=== PATIENT | female | born 1990 | race Caucasian/White ===

== ENCOUNTER → 2019-03-01 11:38 | Outpatient (CLI) | payer BC, SELFPAY ==
[2019-03-01 12:10] LABS: Basophils % 0.3 % (0.1-2.0); Eosinophils # 0.3 K/mm3 (0.0-0.4); Eosinophils % 4.2 % (0.1-12.0); Hematocrit 39.9 % (37.0-47.0); Hemoglobin 13.1 g/dL (12.2-16.2); Lymphocytes # 3.2 K/mm3 (0.7-4.5); Lymphocytes % 43.7 % (10-50); Mean Corpuscular HGB Conc 32.9 g/dL (31.8-35.4); Mean Corpuscular Hemoglobin 31.6 pg (27.0-31.2); Mean Corpuscular Volume 96.1 fl (81-99); Mean Platelet Volume 8.9 fl (7.4-10.4); Monocytes # 0.3 K/mm3 (0.1-1.0); Monocytes % 4.6 % (1.7-9.3); Neutrophils # 3.5 K/mm3 (1.8-7.8); Neutrophils % 47.2 % (37.0-80.0); Platelet Count 253 K/mm3 (142-424); Red Blood Count 4.15 M/mm3 (4.20-5.40); Red Cell Distribution Width 12.4 % (11.5-17.5); White Blood Count 7.3 K/mm3 (4.8-10.8)
[2019-03-01 16:09] LABS: Alanine Aminotransferase 16 U/L (12-78); Albumin Level 4.2 gm/dL (3.4-5.0); Albumin/Globulin Ratio 1.3 (1.1-1.8); Alkaline Phosphatase 53 U/L (46-116); Anion Gap 11.8 mEq/L (5-15); Aspartate Amino Transferase 12 U/L (15-37); Bilirubin,Total 0.3 mg/dL (0.2-1.0); Blood Urea Nitrogen 10 mg/dL (7-18); Calcium 9.1 mg/dL (8.5-10.1); Carbon Dioxide 28 mmol/L (21.0-32.0); Chloride 105 mmol/L (98-107); Chol/HDL Ratio 2.9 (1-3.5); Cholesterol 176 mg/dL (140-200); Creatinine,Serum 0.65 mg/dL (0.55-1.02); Estimated Glomerular Filt Rate 109 ml/min (>60); Free T4 (Free Thyroxine) 0.84 ng/dl (0.76-1.46); GFR (African American) 131 ML/MIN (>60); Globulin 3.2 gm/dl (1.3-3.2); Glucose 85 mg/dL (74-106); HDL Cholesterol 61 mg/dL (29-89); LDL Cholesterol 102 mg/dL (0-130); Potassium 4.8 mmoL/L (3.5-5.1); Sodium 140 mmol/L (136-145); Thyroid Stimulating Hormone 1.04 uIU/ml (0.358-3.740); Total Protein,Serum 7.4 gm/dL (6.4-8.2); Triglycerides 64 mg/dL (30-200); VLDL Cholesterol 13 mg/dL (0-40)
== END ==
PROVIDERS: Visit Provider Nurse Practitioner Family
DX: R53.83 Other fatigue (principal); E55.9 Vitamin D deficiency, unspecified
CPT/HCPCS: 36415; 80053; 80061; 82652; 84439; 84443; 85025

== ENCOUNTER → 2019-03-05 16:21 | Outpatient (CLI) | payer BC, SELFPAY ==
--- NOTE | 2019-03-05 16:27 | XR_ITS ---
PROCEDURE: XR ELBOW RT MIN 3V CLINICAL INDICATION: pain Persistent pain following injury COMPARISON: No exams were available for comparison FINDINGS: No fracture or dislocation. No lytic or blastic change. There is normal mineralization. The joint spaces are well-preserved. No significant degenerative/arthritic changes. No erosive changes evident. Other findings:2 small opacities lateral to the elbow joint overlying the soft tissues possibly due something upon the patient. Button artifact is present as well IMPRESSION: No acute findings. Dictated by: Ben Ghosh MD 03/05/2019 17:28 Electronically signed by Ben Ghosh MD in [place] 03/05/2019 17:28
== END ==
PROVIDERS: PCP Nurse Practitioner Family; Visit Provider Nurse Practitioner Family
DX: M25.521 Pain in right elbow (principal)
CPT/HCPCS: 73080

== ENCOUNTER → 2019-06-20 12:46 | Outpatient (CLI) | payer BC, SELFPAY ==
[2019-06-20 15:22] LABS: Thyroid Stimulating Hormone 0.66 uIU/mL (0.465-4.68)
[2019-06-21 20:43] LABS: Progesterone 1.4 ng/mL (.)
== END ==
PROVIDERS: Visit Provider Obstetrics & Gynecology
DX: N92.6 Irregular menstruation, unspecified (principal)
CPT/HCPCS: 36415; 84144; 84443

== ENCOUNTER → 2019-09-10 14:14 | Outpatient (CLI) | payer BC, SELFPAY ==
[2019-09-12 20:31] LABS: Progesterone 2.4 ng/mL (.)
== END ==
PROVIDERS: Visit Provider Obstetrics & Gynecology
DX: N92.6 Irregular menstruation, unspecified (principal)
CPT/HCPCS: 36415; 84144

== ENCOUNTER → 2019-10-13 07:59 | Outpatient (CLI) | payer BC, SELFPAY ==
[2019-10-15 04:47] LABS: Progesterone 0.7 ng/mL (.)
== END ==
PROVIDERS: Visit Provider Obstetrics & Gynecology
DX: N92.6 Irregular menstruation, unspecified (principal)
CPT/HCPCS: 36415; 84144

== ENCOUNTER → 2019-10-27 09:13 | Outpatient (CLI) | payer BC, SELFPAY ==
[2019-10-27 11:01] LABS: HCG,Quantitative 54 mIU/ml (0-5.42)
== END ==
PROVIDERS: Visit Provider Obstetrics & Gynecology
DX: Z32.00 Encounter for pregnancy test, result unknown (principal)
CPT/HCPCS: 36415; 84702

== ENCOUNTER → 2019-10-30 08:38 | Outpatient (CLI) | payer BC, SELFPAY ==
[2019-10-30 11:03] LABS: HCG,Quantitative 191 mIU/ml (0-5.42)
== END ==
PROVIDERS: Visit Provider Obstetrics & Gynecology
DX: Z34.90 Encounter for supervision of normal pregnancy, unspecified, unspecified trimester (principal)
CPT/HCPCS: 36415; 84702

== ENCOUNTER → 2019-11-10 11:10 | Outpatient (CLI) | payer BC, SELFPAY ==
[2019-11-10 13:19] LABS: HCG,Quantitative 14388 mIU/ml (0-5.42)
== END ==
PROVIDERS: Visit Provider Obstetrics & Gynecology
DX: O20.0 Threatened abortion (principal)
CPT/HCPCS: 36415; 84702

== ENCOUNTER → 2019-11-18 14:02 | Outpatient (CLI) | payer BC, SELFPAY ==
--- NOTE | 2019-11-18 14:10 | US_ITS ---
PROCEDURE: US OB TRANSVAGINAL CLINICAL INDICATION: US OB Dates COMPARISON: No exams were available for comparison FINDINGS: An intrauterine gestational sac is present with a pole with a crown-rump length of 0.8cm correlating to gestational age of 6weeks 6days. heart tones are present with an FHR of 139bpm. Yolk sac is noted. There is a 2.7 cm left ovarian cyst which has benign features IMPRESSION: Live IUP at 6 weeks 6 days Estimated due date by Ultrasound is 07/07/2020 Dictated b Ben Ghosh MD 11/18/2019 19:09 Ben Ghosh MD in [place] 11/18/2019 19:09
== END ==
PROVIDERS: PCP Nurse Practitioner Family; Visit Provider Obstetrics & Gynecology
DX: O26.841 Uterine size-date discrepancy, first trimester (principal)
CPT/HCPCS: 76817

== ENCOUNTER 2020-01-25 17:37 | Emergency (ER) | payer BC, SELFPAY ==
[2020-01-25 17:50] VITALS: BP 115/61; PULSE 88; RESP 19; TEMP 36.6; O2SAT 98; BMI 23.2
--- NOTE | 2020-01-25 18:22 | HMH.EDUTC ---
[facility] [place] Clinical Impression: Exposure to COVID-19 virus Disposition: Home, Self-Care Condition on Discharge: Good Instructions: Preventing the Spread of Coronavirus Discharge Instructions Additional Instructions: Follow the recomendations of your material control supervisor doctor and the local health department. Call here if you need anything like an extended work excuse or anything else. GO TO THE ER FOR ANY WORSENING SYMPTOMS OR CONCERNS Referrals: Neelima Yuan APRN [Primary Care Provider] - Time of Disposition: 18:32 Medical Decision Making - Medical Records Medical records reviewed: No: I reviewed the patient's medical records. - Puma Inquiry Pt receiving controlled substance: No Vital Signs: 01/25/20 17:50 Temperature 97.9 F Temperature Source Oral Pulse Rate [Right Brachial] 88 Respiratory Rate 19 Blood Pressure [Right Arm] 115/61 Blood Pressure Mean [Right Arm] 79 Blood Pressure Source [Right Arm] Automatic Cuff Blood Pressure Position [Right Arm] Sitting 02 Sat by Pulse Oximetry 98 Oxygen Delivery Method Room Air Orders (Tests/Meds): ORDERS Category Date Time Status Covid-19 Nasal PCR ([facility]) Routine Lab 01/25/20 17:56 Ordered [facility] [place] - General Stated complaint: covid test/exposure Time Seen by Provider: 01/25/20 18:22 Mode of Arrival: Ambulatory Source of Information: Patient Limitations: No Limitations Description of Symptoms (Recalled from Triage Doc. by RN): PATIENT REQUESTING COVID TEST; TESTED POSITIVE TODAY. DENIES ANY SYMPTOMS. PATIENT IS 17 WEEKS HEENT Symptoms (Recalled from RN notes): No Resp Symptoms (Recalled from RN notes): No Skin Symptoms (Recalled from RN notes): No MS Symptoms (Recalled from RN notes): No Functional Status (Recalled from RN notes): WNL - History of Present Illness Provider Complaint: Her tested positive for COVID-19 earlier today. She denies any symptoms. But, she is 17 weeks . - Related Data Home Medications Medication Instructions Recorded Confirmed prenat.vits,elie,tdl-[id number] 1 tab PO DAILY 06/12/19 01/25/20 sertraline 25 mg tablet 25 mg PO DAILY 06/12/19 01/25/20 Allergies Allergy/AdvReac Type Severity Reaction Status Date / Time No Known Allergies Allergy Verified 06/12/19 14:56 - Worker's Comp Is this a Worker's Comp case?: No [facility] History - Hepatitis A Screen Drug use history?: No High risk sexual behaviors?: No History of sexually transmitted infection?: No Currently employed?: No Childcare worker?: No Do you have indoor plumbing?: Yes Do you have electricity?: Yes Attestation statement:: This patient has been screened for Hepatitis A risk factors. I have reviewed the patient's past medical history: Yes Medical History: Reports:: Anxiety Comment: 2009-T&A - Social History Smoking Status: Never smoker Alcohol Intake: never Occupational Status: other Housing: house - Psychiatric History Pschychiatric History:: Reports:: Anxiety Family Hx:: Cancer Comment: Both Grandmothers with Breast Cancer ROS Obtained: Yes All systems reviewed & no additional complaints - Constitutional Constitutional: Denies chills, Denies fever(s) - Eyes Eyes: Denies eye discharge - ENT Ears, Nose, Mouth, and Throat: Denies dizziness, Denies otalgia, Denies sore throat - Cardiovascular Cardiovascular: Denies chest pain - Respiratory Respiratory: No chest congestion, No cough - Gastrointestinal Gastrointestingal: Denies: abdominal pain, diarrhea, nausea, vomiting - Genitourinary Female Genitourinary: Denies dysuria, Denies urinary incontinence, Denies urinary hesitancy, Denies urinary urgency - Musculoskeletal Musculoskeletal: Denies back pain - Integumentary/Breasts Skin/Breast: Denies rash Physical Exam - General General appearance: alert, in no apparent distress - Head Head exam: atraumatic, normocephalic, normal inspection - Eye Eye exam: Present: normal
[2020-01-25 18:38] VITALS: BP 115/61; PULSE 88; RESP 19; TEMP 36.6; O2SAT 98
== END 2020-01-25 18:40 | disposition home or self-care (01) ==
PROVIDERS: Emergency Provider Nurse Practitioner Family; PCP Nurse Practitioner Family
DX: Z20.828 Contact with and (suspected) exposure to other viral communicable diseases (principal); Z3A.17 17 weeks gestation of pregnancy; F41.9 Anxiety disorder, unspecified
CPT/HCPCS: 99201; U0003

== ENCOUNTER 2020-01-29 10:51 | Emergency (ER) | payer BC, SELFPAY ==
[2020-01-29 11:55] VITALS: BP 120/74; PULSE 90; RESP 18; TEMP 36.8; O2SAT 96; BMI 22.8
--- NOTE | 2020-01-29 12:11 | HMH.EDUTC ---
[facility] [place]: Viral syndrome Qualifiers: Weeks of gestation: 17 weeks Qualified Code(s): Z3A.17 - 17 weeks gestation of Disposition: Home, Self-Care Condition on Discharge: Good Instructions: Preventing the Spread of Coronavirus Discharge Instructions Additional Instructions: Follow up with your ob doctor. Drink plenty of fluids. Take tylenol for pain or fever. Follow up with your regular doctor. GO TO THE ER FOR ANY WORSENING SYMPTOMS FOLLOW THE DIRECTIONS ON THE COVID-19 HAND OUT THAT WE GAVE YOU REGARDING SELF-ISOLATION UNTIL YOU KNOW YOUR COVID-19 RESULTS Referrals: Neelima Yuan APRN [Primary Care Provider] - Time of Disposition: 12:13 Medical Decision Making - Medical Records Medical records reviewed: No: I reviewed the patient's medical records. - Puma Inquiry Pt receiving controlled substance: No Vital Signs: 01/29/20 11:55 01/29/20 12:18 Temperature 98.2 F 98.2 F Temperature Source Oral Oral Pulse Rate 90 Pulse Rate [Radial] 90 Respiratory Rate 18 18 Blood Pressure 120/74 Blood Pressure [Right Arm] 120/74 Blood Pressure Mean [Right Arm] 89 Blood Pressure Source Automatic Cuff Blood Pressure Source [Right Arm] Automatic Cuff Blood Pressure Position Sitting Blood Pressure Position [Right Arm] Sitting 02 Sat by Pulse Oximetry 96 Oxygen Delivery Method Room Air Room Air Orders (Tests/Meds): ORDERS Category Date Time Status Covid-19 Nasal PCR Sendout Jarrett Routine Lab 01/29/20 12:19 Received [facility] [place] - General Stated complaint: cough,congestion,sore throat Time Seen by Provider: 01/29/20 12:10 Mode of Arrival: Ambulatory Source of Information: Patient Limitations: No Limitations Description of Symptoms (Recalled from Triage Doc. by RN): TESTED POSITIVE SUNDAY. HAS BEEN QUARANTINED SINCE THEN. WAS ALSO TESTED SUNDAY FOR COVID AND WAS NEGATIVE. HERE FOR A RETEST BECAUSE SHE IS BECOMING MORE SYMPTOMATIC. HEENT Symptoms (Recalled from RN notes): Yes Resp Symptoms (Recalled from RN notes): No Skin Symptoms (Recalled from RN notes): No MS Symptoms (Recalled from RN notes): No Functional Status (Recalled from RN notes): WNL - History of Present Illness Provider Complaint: She is 17 weeks . Her was positive for COVID 2 days ago. She has similar symptoms to what he had. She tested negative for covid 3 days ago, but her ob doctor wanted her to be rechecked. - Related Data Home Medications Medication Instructions Recorded Confirmed prenat.vits,elie,moz-lbgb-[id number] 1 tab PO DAILY 06/12/19 01/25/20 sertraline 25 mg tablet 25 mg PO DAILY 06/12/19 01/25/20 Allergies Allergy/AdvReac Type Severity Reaction Status Date / Time No Known Allergies Allergy Verified 06/12/19 14:56 - Worker's Comp Is this a Worker's Comp case?: No H History - Hepatitis A Screen Drug use history?: No High risk sexual behaviors?: No History of sexually transmitted infection?: No Currently employed?: No Childcare worker?: No Do you have indoor plumbing?: Yes Do you have electricity?: Yes Attestation statement:: This patient has been screened for Hepatitis A risk factors. I have reviewed the patient's past medical history: Yes Medical History: Reports:: Anxiety Comment: T&A - Social History Smoking Status: Never smoker Alcohol Intake: never Occupational Status: employed Housing: house - Psychiatric History Pschychiatric History:: Reports:: Anxiety Family Hx:: Cancer Comment: Both Grandmothers with Breast Cancer ROS Obtained: Yes All systems reviewed & no additional complaints - Constitutional Constitutional: Reports chills, Denies fever(s), Reports poor appetite, Reports malaise - Eyes Eyes: Denies eye discharge - ENT Ears, Nose, Mouth, and Throat: Denies dizziness, Denies otalgia, Reports sore throat - Cardiovascular Cardiovascular: Denies chest pain - Respiratory
[2020-01-29 12:18] VITALS: BP 120/74; PULSE 90; RESP 18; TEMP 36.8; O2SAT 96
[2020-01-30 13:52] LABS: Covid-19 Nasal PCR Sendout Lex Not Detected
== END 2020-01-29 12:19 | disposition home or self-care (01) ==
PROVIDERS: Emergency Provider Nurse Practitioner Family; PCP Nurse Practitioner Family
DX: Z20.828 Contact with and (suspected) exposure to other viral communicable diseases (principal); B34.9 Viral infection, unspecified; Z3A.17 17 weeks gestation of pregnancy; F41.9 Anxiety disorder, unspecified
CPT/HCPCS: 99201; U0004

== ENCOUNTER → 2021-06-28 14:34 | Outpatient (POV) | payer BC, SELFPAY | PROVIDERS: Visit Provider Dermatology | DX: Z00.00 Encounter for general adult medical examination without abnormal findings (principal) ==

== ENCOUNTER → 2021-08-09 15:11 | Outpatient (POV) | payer BC, SELFPAY | PROVIDERS: Visit Provider Dermatology | DX: Z00.00 Encounter for general adult medical examination without abnormal findings (principal) ==

== ENCOUNTER → 2022-06-06 23:50 | Outpatient (CLI) | payer BC, SELFPAY | PROVIDERS: PCP Student in an Organized Health Care Education/Training Program; Visit Provider Student in an Organized Health Care Education/Training Program | DX: J02.9 Acute pharyngitis, unspecified (principal) | CPT/HCPCS: 87070; C9803; U0003; U0005 ==

== ENCOUNTER → 2022-07-19 09:24 | Outpatient (CLI) | payer BC, SELFPAY ==
[2022-07-19 10:36] LABS: HCG,Quantitative 11556 mIU/ml (0-5.42)
[2022-07-20 09:41] LABS: Progesterone 5.5 ng/mL (.)
== END ==
PROVIDERS: Visit Provider Obstetrics & Gynecology
DX: N92.6 Irregular menstruation, unspecified (principal); Z32.00 Encounter for pregnancy test, result unknown
CPT/HCPCS: 36415; 84144; 84702

== ENCOUNTER → 2022-07-21 08:13 | Outpatient (CLI) | payer BC, SELFPAY ==
[2022-07-21 10:44] LABS: HCG,Quantitative 19561 mIU/ml (0-5.42)
[2022-07-22 08:37] LABS: Progesterone 20.4 ng/mL (.)
== END ==
PROVIDERS: Visit Provider Obstetrics & Gynecology
DX: Z34.90 Encounter for supervision of normal pregnancy, unspecified, unspecified trimester (principal); Z3A.17 17 weeks gestation of pregnancy
CPT/HCPCS: 36415; 84144; 84702

== ENCOUNTER → 2022-07-31 08:18 | Outpatient (CLI) | payer BC, SELFPAY ==
[2022-08-01 14:11] LABS: Progesterone 16.2 ng/mL (.)
== END ==
PROVIDERS: Visit Provider Obstetrics & Gynecology
DX: Z34.90 Encounter for supervision of normal pregnancy, unspecified, unspecified trimester (principal); Z3A.17 17 weeks gestation of pregnancy
CPT/HCPCS: 36415; 84144; 84702; 87086

== ENCOUNTER → 2022-08-01 00:13 | Outpatient (CLI) | payer BC, SELFPAY | PROVIDERS: Visit Provider Obstetrics & Gynecology | DX: Z34.90 Encounter for supervision of normal pregnancy, unspecified, unspecified trimester (principal) ==

== ENCOUNTER → 2022-08-14 13:36 | Outpatient (CLI) | payer BC, SELFPAY ==
[2022-08-14 14:24] LABS: Basophils % 0.1 % (0.1-2.0); Eosinophils # 0.1 K/mm3 (0.0-0.4); Eosinophils % 0.9 % (0.1-12.0); Hematocrit 37.6 % (37.0-47.0); Hemoglobin 12.6 g/dL (12.2-16.2); Lymphocytes # 2.6 K/mm3 (0.7-4.5); Lymphocytes % 28.9 % (10-50); Mean Corpuscular HGB Conc 33.5 g/dL (31.8-35.4); Mean Corpuscular Hemoglobin 30.4 pg (27.0-31.2); Mean Corpuscular Volume 90.8 fl (81-99); Mean Platelet Volume 8.3 fl (7.4-10.4); Monocytes # 0.4 K/mm3 (0.1-1.0); Neutrophils # 5.8 K/mm3 (1.8-7.8); Neutrophils % 66.1 % (37.0-80.0); Platelet Count 288 K/mm3 (142-424); Red Blood Count 4.15 M/mm3 (4.20-5.40); Red Cell Distribution Width 12.4 % (11.5-17.5); White Blood Count 8.8 K/mm3 (4.8-10.8)
[2022-08-16 10:05] LABS: Rubella Antibodies, IgG 1.02 index (Immune >0.99)
[2022-08-16 13:51] LABS: Rapid Plasma Reagin Ab Titer Non Reactive (NonRea<1:1)
[2022-08-25 20:46] LABS: HIV Screen 4th Generation wRfx Non Reactive; Hepatitis B Surface Antigen Negative; Hepatitis C Antibody Non Reactive
== END ==
PROVIDERS: Visit Provider Obstetrics & Gynecology
DX: Z34.90 Encounter for supervision of normal pregnancy, unspecified, unspecified trimester (principal)
CPT/HCPCS: 36415; 85025; 86593; 86703; 86762; 86850; 87340; 87380; G0432

== ENCOUNTER → 2022-11-01 12:58 | Outpatient (CLI) | payer BC, SELFPAY ==
--- NOTE | 2022-11-01 13:04 | US_ITS ---
PROCEDURE: US OB /MATERNAL DETAIL CLINICAL INDICATION: 20 week anatomy scan COMPARISON: No exams were available for comparison FINDINGS: From her established due date she is 21 weeks 0 days. Single viable intrauterine gestation. Vertex position. Placenta: Posteriorplacenta grade 1. There is average amount fluid. The cervix appears satisfactory. Closed and measuring 3.6 cm in length. Complete survey performed and was unremarkable on the submitted images as in PACS. No discrete anomalies identified on survey imaging by technologist. Active fetus. Three-vessel cord with satisfactory umbilical cord insertion. 4- chamber heart noted. Situs, LVOT, RVOT, aortic arch appear normal. Survey of brain & ventricles Unremarkable. Cerebellum, cisterna magna, thalamus, choroid plexus appear normal. Face and neck survey unremarkable. Profile, nasion, lips and nose appeared normal. Diaphragm and chest views unremarkable. Abdomen: Both kidneys noted and unremarkable. Stomach and bladder appear normal. Spine: Survey of the spine satisfactory with no anomalies identified nor imaged. Upper, thoracic and lower spine appear normal. Both arms and legs noted. Amniotic Fluid: Adequate. Measurements: Average ultrasound age 20weeks 1day. Estimated due date by ultrasound age 1203/20/2023. Estimated weight 327g BPD = 20weeks OFD = 21weeks HC = 20weeks AC = 19weeks 6days FL = 20weeks 3days Growth Percentile= 8 Heart Rate = 153bpm Cerebellum = 19weeks 6days Humerus = 21weeks 2days HC/AC is 1.2 CI is 0.73 FL/BPD is 0.72 FL/AC is 0.23 IMPRESSION: 1. Viable fetus in the cephalic presentation with a posterior placenta grade 1. The fluid is normal. 2. Anatomical scan appears normal. Dictated by: Mele Solis MD 11/02/2022 12:44 Mele Solis MD in [place] 11/02/2022 12:44
== END ==
PROVIDERS: PCP Obstetrics & Gynecology; Visit Provider Obstetrics & Gynecology
DX: Z34.92 Encounter for supervision of normal pregnancy, unspecified, second trimester (principal); Z3A.20 20 weeks gestation of pregnancy
CPT/HCPCS: 76811

== ENCOUNTER → 2022-12-15 07:57 | Outpatient (CLI) | payer BC, SELFPAY ==
[2022-12-15 08:26] LABS: Basophils % 0.4 % (0.1-2.0); Eosinophils # 0.2 K/mm3 (0.0-0.4); Eosinophils % 2.2 % (0.1-12.0); Hematocrit 40.1 % (37.0-47.0); Hemoglobin 12.9 g/dL (12.2-16.2); Lymphocytes # 2.7 K/mm3 (0.7-4.5); Lymphocytes % 28.5 % (10-50); Mean Corpuscular HGB Conc 32.1 g/dL (31.8-35.4); Mean Corpuscular Hemoglobin 29.9 pg (27.0-31.2); Mean Corpuscular Volume 93.3 fl (81-99); Monocytes # 0.3 K/mm3 (0.1-1.0); Monocytes % 3.4 % (1.7-9.3); Neutrophils # 6.2 K/mm3 (1.8-7.8); Neutrophils % 65.5 % (37.0-80.0); Platelet Count 250 K/mm3 (142-424); White Blood Count 9.5 K/mm3 (4.8-10.8)
[2022-12-15 08:58] LABS: Glucose,Fasting 83 mg/dl (74-100)
[2022-12-15 10:08] LABS: Glucose 1 Hour 126 mg/dL (74-100)
== END ==
PROVIDERS: Visit Provider Obstetrics & Gynecology
DX: Z3A.27 27 weeks gestation of pregnancy (principal); Z34.92 Encounter for supervision of normal pregnancy, unspecified, second trimester
CPT/HCPCS: 36415; 82951; 85025

== ENCOUNTER → 2023-02-15 09:57 | Outpatient (CLI) | payer BC, SELFPAY ==
--- NOTE | 2023-02-15 09:57 | US_ITS ---
PROCEDURE: US OB BIOPHYSICAL PROFILE CLINICAL INDICATION: sga/ with RAPHAEL COMPARISON: FINDINGS: Transabdominal sonographic images of the uterus were obtained. From her established due date she is 36weeks 1day. The following parameters are obtained: Viable fetus in the cephalic presentation with a fundal placenta grade 1. Average ultrasound age is 35weeks 3days. Estimated weight is 5lb 13 oz, 2633 grams. heart rate: 130bpm bpm. BPD: 36weeks 2days OFD: 36weeks 2days HC: 36 weeks 1 day AC: 35 weeks 0 day FL: 36 weeks 1 day HC/AC: 1.04 Cephalic index: 0.76 FL/BPD: 0.84 FL/AC: 0.23 28 percentile Amniotic fluid index: 12.61cm, MVP 4.7 cm. Qualitative AFV: 2 breathing movements: 2 Gross body movements: 2 Tone: 2 Biophysical profile score: 8 Doppler evaluation of the umbilical artery: SD ratio: 2.76 - 3.64 Resistive index: 0.56 No obvious anomalies evident.Kidneys, profile, nasion, three-vessel cord appear normal. IMPRESSION: 1. Viable fetus in the cephalic presentation with a fundal placenta grade 1. 2. The fluid is within normal limits with an amniotic fluid index of 12.6 cm. 3. Biophysical profile is 8/8 with good breathing movement seen. 4. There has been good interval growth with the fetus currently 28 percentile. 5. SD ratio is normal. Dictated by: Mele Solis MD 02/15/2023 14:59 Mele Solis MD in [place] 02/15/2023 14:59
== END ==
PROVIDERS: PCP Obstetrics & Gynecology; Visit Provider Obstetrics & Gynecology
DX: O28.8 Other abnormal findings on antenatal screening of mother (principal); O36.5930 Maternal care for other known or suspected poor fetal growth, third trimester, not applicable or unspecified; Z3A.36 36 weeks gestation of pregnancy
CPT/HCPCS: 76816; 76819; 76820

== ENCOUNTER 2023-03-12 05:00 | Inpatient (IN) | payer BC, SELFPAY ==
[2023-03-12] VITALS (20 sets, daily range): BP systolic 115–144; BP diastolic 45–87; PULSE 70–109; RESP 12–20; TEMP 36.3–36.8; O2SAT 96–100; BMI 31.4
[2023-03-12 06:43] LABS: Microscopic, Urine URINE MICROSCOPIC (MICROSCOPIC)
[2023-03-12 06:46] LABS: Appearance,Urine CLEAR (Clear); Bilirubin,Urine Negative (Negative); Blood, Urine Negative (Negative); Color,Urine YELLOW (Yellow); Glucose,Urine (UA) Negative (Negative); Ketones,Urine Negative (Negative); Leukocyte Esterase,Urine Negative (Negative); Nitrate,Urine Negative (Negative); Protein,Urine Negative (Negative); Specific Gravity, Urine >= 1.030 (1.005-1.030); Urobilinogen,Urine 0.2 EU/dl (0.2)
[2023-03-12 06:52] LABS: Basophils % 0.2 % (0.1-2.0); Eosinophils # 0.2 K/mm3 (0.0-0.4); Eosinophils % 1.4 % (0.1-12.0); Lymphocytes # 3.4 K/mm3 (0.7-4.5); Lymphocytes % 29.7 % (10-50); Mean Corpuscular HGB Conc 34.3 g/dL (31.8-35.4); Mean Corpuscular Hemoglobin 31.3 pg (27.0-31.2); Mean Corpuscular Volume 91.3 fl (81-99); Mean Platelet Volume 9.3 fl (7.4-10.4); Monocytes # 0.6 K/mm3 (0.1-1.0); Neutrophils # 7.2 K/mm3 (1.8-7.8); Neutrophils % 63.6 % (37.0-80.0); Platelet Count 239 K/mm3 (142-424); Red Blood Count 3.83 M/mm3 (4.20-5.40); Red Cell Distribution Width 13.7 % (11.5-17.5); White Blood Count 11.4 K/mm3 (4.8-10.8)
[2023-03-12 06:56] LABS: Alanine Aminotransferase 23 U/L (12-78); Alkaline Phosphatase 93 U/L (38-126); Aspartate Amino Transferase 36 U/L (14-36); Bilirubin,Total 0.3 mg/dl (0.2-1.3); Blood Urea Nitrogen 8 mg/dl (7-17); Carbon Dioxide 22 mmol/L (22.0-30.0); Chloride 104 mmol/L (98-107); Creatinine Clearance Estimated 199 mL/min (50-200); Estimated Glomerular Filt Rate 143 ml/min (>60); GFR (African American) 173 ML/MIN (>60)
[2023-03-12 06:57] LABS: Albumin Level 3.7 g/dl (3.5-5.0); Albumin/Globulin Ratio 1.3 (1.1-1.8); Anion Gap 9.6 mEq/L (5-15); Calcium 8.8 mg/dl (8.4-10.2); Globulin 2.9 g/dL (1.3-3.2); Glucose 91 mg/dl (74-100); Potassium 3.6 mmoL/L (3.5-5.1); Sodium 132 mmol/L (136-145); Total Protein,Serum 6.6 g/dl (6.3-8.2)
[2023-03-12 07:05] LABS: Bacteria,Urine 1+ /lpf; RBC,Urine Occasional #/hpf (0-3); WBC,Urine Occasional #/hpf (0-3)
--- NOTE | 2023-03-12 07:20 | EXP.OB.APHP ---
OB - H&P: HPI Antepartum History of Present Illness Chief complaint: Scheduled repeat History of present illness: Mrs Radha Saunders is a very pleasant 32 yo at 39w4d who presents to [facility] for scheduled repeat . History of x 1. She has had good care. Baby is active. History of Present Criteria for establishing EDC:: LMP confirmed by 1st trimester US care: good care Ultrasounds: normal mid trimester US Obstetrical complications: none Medical complications: none Labs Blood type: A (+) positive Rubella: immune RPR/VDRL: nonreactive HBsAG: negative [facility] Disclaimer: The information contained in this section may have been updated after the patient was seen, as this information can be updated by other users. Medical History (Updated 03/12/23 @ 07:27 by Mayra Medeiros DO) Depression Depression affecting , antepartum Family history of breast cancer Hernia with 39 completed weeks gestation Surgical History History of History of tonsillectomy Family History Other Cancer Coronary artery disease Diabetes FHx: mental illness Substance abuse Social History Smoking Status: Never smoker alcohol intake: never substance use type: denies use current occupational status: employed Travel in the last 8 weeks: None housing: house Review of Systems Review of Systems Review of systems:: pertinent systems reviewed and negative unless documented below Meds Home Medications and Allergies Home Medications Medication Instructions Recorded Confirmed Type sertraline 50 mg tablet 50 mg PO DAILY Mood 06/06/22 03/12/23 History vit no.95-ferrous 1 tab PO DAILY Supplement 03/12/23 03/12/23 History fumarate 28 mg-folic acid 800 mcg tablet () New Prescriptions to Start Prescriptions: Allergies Allergy/AdvReac Type Severity Reaction Status Date / Time No Known Allergies Allergy Verified 03/06/23 10:18 OB - H&P: Exam Physical Exam Vital signs: Temp Pulse Resp BP Pulse Ox O2 Del Method 98.2 F 84 17 122/71 96 Room Air 03/12/23 06:35 03/12/23 06:35 03/12/23 06:35 03/12/23 06:35 03/12/23 06:35 03/12/23 06:35 Constitutional no acute distress and cooperative Routine HEENT Exam Head: Present normocephalic and atraumatic Eye: Absent conjunctivae pink ENT: Present mucous membranes moist Routine Neck Exam Present full ROM Routine Respiratory Exam Present CTA bilaterally and normal respiratory effort Routine Cardiovascular Exam Present RRR Routine Abdominal Exam Present soft (Gravid); Absent tenderness Routine Rectal Exam Patient deferred: visual exam Routine Exam External: Present normal urethra appearance; Absent erythema, tenderness, lesions, lacerations or vulvar erythema Routine Extremities Exam Present full ROM; Absent edema or calf tenderness Routine Neurological Exam Present alert, oriented X3 and moving all extremities Routine Psychiatric Exam Present normal affect and cooperative OB - Results Labs Labs: Short CBC 03/12/23 Range/Units 06:00 WBC 11.4 H (4.8-10.8) K/mm3 Hgb 12.0 L (12.2-16.2) g/dL Hct 35.0 L (37.0-47.0) % Plt Count 239 (142-424) K/mm3 BMP 03/12/23 06:00 Sodium 132 L Potassium 3.6 Chloride 104 Carbon Dioxide 22 BUN 8 Creatinine 0.50 L Glucose 91 Calcium 8.8 Liver Function 03/12/23 Range/Units 06:00 Total Bilirubin 0.3 (0.2-1.3) mg/dl AST 36 (14-36) U/L ALT 23 (12-78) U/L Alkaline Phosphatase 93 (38-126) U/L Albumin 3.7 (3.5-5.0) g/dl Urine 03/12/23 Range/Units Unknown Urine Color Yellow (Yellow) Urine Appearance Clear (Clear) Urine pH 6.0 (5.0-8.5) Ur Specific Vega >=
--- NOTE | 2023-03-12 07:21 | EXP.ANES.CKL ---
[facility] Disclaimer: The information contained in this section may have been updated after the patient was seen, as this information can be updated by other users. Medical History Depression Depression affecting , antepartum Family history of breast cancer Hernia Surgical History History of History of tonsillectomy Family History Other Cancer Coronary artery disease Diabetes FHx: mental illness Substance abuse Social History Smoking Status: Never smoker alcohol intake: never substance use type: denies use current occupational status: employed Travel in the last 8 weeks: None housing: house [facility] Anesthesia Checklist Patient Identification Patient Identification: Arm Band and Verbal (Name & ) Structural Data Admitted From: Inpatient Planned Operative Procedure/s: C/S Consent for Planned Operative Procedure(s) Verified: Yes NPO Status Verified Time NPO: 00:00 Chart Verification Results Verified: CBC and BMP Additional verifications Anesthesia Reactions: No Airway Assessment Mallampati Score:: Class I C-Spine Mobility Assessed: Yes TMJ Mobility Assessed: Yes Dentition: Good Dentition Neurological Assessment Level of Consciousness: Awake Hx Seizures: No Numbness or tingling in extremities: No Anesthesia Plan Anesthesia Risk discussed: Yes Anesthesia Plan: Verified ASA Class: II Anesthesia Type: Spinal
--- NOTE | 2023-03-12 07:22 | HMH.PHAINT1 ---
Pharmacy Intervention Comments: MEDICATION RECONCILIATION COMPLETED ON PATIENT USING EXTERNAL FILL HISTORY FROM PHARMACY. -JOSE MOYA, HIRAMD
[2023-03-12 08:08] LABS: Cord Blood PH 7.42 (7.35-7.45)
--- NOTE | 2023-03-12 08:43 | EXP.OP.NOTE ---
Date of procedure: 03/12/23 Pre-op Diagnosis:: 1. IUP at 39w4d 2. History of x 1 3. Depression affecting Post-op Diagnosis:: 1. IUP at 39w4d 2. History of x 1 3. Depression affecting Procedure performed:: Repeat Low Transverse Section Surgeon:: Mayra Medeiros DO Professor Of Psychology(s):: Mele Solis MD DEHYDROGENATION OPERATOR:: Abilio Reich Anesthesia: spinal Estimated blood loss (mL): 400 Clinical Note:: Mrs Radha Saunders is a very pleasant 32 yo at 39w4d who presents to [facility] for scheduled repeat . History of x 1. She has had good care. Baby is active. Operative findings:: 1. Live female baby, [place] September, weighing 7 lb 10 oz, AGPARs 8 (1 min), 9 (5 min) 2. Grossly normal appearing uterus, right fallopian tube and bilateral ovaries. Left paratubal cyst noted Operative note:: The risks, benefits and alternatives of the procedure were reviewed with the patient. Informed consent was obtained. Patient was taken to the operating room where spinal anesthesia was placed. The patient received 2 grams of Ancef preoperatively. Patient was placed in dorsal supine position with a leftward tilt. SCDs in place. Thorne catheter was inserted and draining clear urine prior to the start of the procedure. heart tones were obtained. Patient was then prepped and draped in normal sterile fashion. Allis clamp test was performed to ensure adequate anesthesia. A Pfannenstiel skin incision was made 2 cm above pubic symphysis along prior Pfannenstiel scar. This was carried through to underlying layer of fascia. Fascia was incised in midline, extended laterally with Yeager scissors. Superior aspect of fascial incision was grasped with two Galilea clamps, elevated up, and rectus muscle dissected off bluntly and sharply with Yeager scissors. Inferior aspect of fascial incision was grasped with two Galilea clamps, elevated up, and rectus muscle dissected off bluntly and sharply with Yeager scissors. The retcus muscle was then in the midline and the peritoneum was entered bluntly with a digit. Peritoneal incision was then extended superiorly and inferiorly with good visualization of the bladder. Leonard retractor was inserted. The lower uterine segment was incised in a transverse fashion. Clear amniotic fluid was noted. Head was delivered without difficulty. Remainder of body was delivered without difficulty. Mouth and nares were bulb suctioned. Spontaneous cry was noted. Delayed cord clamping was performed for 60 seconds. The umbilical cord was clamped and cut. The was handed to awaiting pediatric staff in stable condition. Dr. Mccormack was present. Apgars were 8(1 min), 9(5 min). Section of cord was collected for cord gases. Cord blood was obtained. Gentle traction on the umbilical cord and uterine fundal massage delivered the placenta. Placenta was intact. Uterus was cleared of all clots and debris with a moist laparotomy sponge. Corners of the uterine incision were grasped with Allis clamps. The uterine incision was reapproximated with # 1 Vicryl suture in a running, locked stitch. Second layer of the same stitch was used to imbricate the incision. Hemostasis was noted. Posterior cul-de-sac was cleaned with moist laparotomy sponge. Gutters cleared of all clots and debris with a moist laparotomy sponge. Reinspection of the lower uterine segment demonstrated excellent hemostasis. At this point all instruments and sponges were removed from the pelvis.? The peritoneum was grasped with Tg clamps x 3. The peritoneum was reapproximated with 0 Vicryl suture in a running stitch. The corners of the fascia were grasped with Galilea clamps, and the fascia was reapproximated with two # 1 Vicryl suture overlapped to the right of midline. Subcutaneous tissue was irrigated with clear return of fluids. The subcutaneous tissue was reapproximated with 3-0 Vicryl. The skin was reapproximated with Insorb estee. Telfa was placed over
--- NOTE | 2023-03-12 08:50 | P.PNANES_ITS ---
[facility] [place] Anesthesia Record Part I Anesthesia Record I Intake, IV Amount: 1,000 Hydration: Adequate Estimated blood loss (mL): 400 Urine output (mL): 100 Blood Pressure: 119/45 SaO2: 100 Pulse Rate: 82 Airway Patency: Patent Respiratory Rate: 12 Temperature: 97.4 F Patient is:: Awake Stable to PACU at:: 08:40
[2023-03-12 09:25] LABS: Barbiturates Screen,Urine Negative ng/ml (<200)
[2023-03-12 09:26] LABS: Amphetamine/Metha Screen,Urine Negative ng/ml (<1000); Cannabinoid Screen,Urine Negative ng/ml (<50)
[2023-03-12 09:27] LABS: Cocaine Screen,Urine Negative ng/ml (<300)
--- NOTE | 2023-03-12 09:27 | SUR.PHASEI ---
0909- detailed report given to fredo wilkins in ob. 0910- pt left in stable condition with fredo wilkins in ob. Pt vss, dressings cdi.
[2023-03-12 09:28] LABS: Methadone Screen,Urine Negative ng/ml (<300); Opiate Screen,Urine Negative ng/ml (<300)
[2023-03-12 09:29] LABS: Phencyclidine Screen,Urine Negative ng/ml (<25)
[2023-03-12 09:35] LABS: Benzodiazepines Screen,Urine Negative ng/ml (<200)
--- NOTE | 2023-03-12 14:17 | SUR.OPER ---
Time of was 0759am. Pts qbl was about 400ml per dr michaud.
[2023-03-13 04:28] VITALS: BP 102/86; PULSE 89; RESP 14; TEMP 36.5; O2SAT 98
[2023-03-13 07:16] LABS: Basophils % 0.4 % (0.1-2.0); Eosinophils # 0.3 K/mm3 (0.0-0.4); Hematocrit 31.2 % (37.0-47.0); Hemoglobin 10.4 g/dL (12.2-16.2); Lymphocytes # 3.7 K/mm3 (0.7-4.5); Lymphocytes % 38.2 % (10-50); Mean Corpuscular HGB Conc 33.4 g/dL (31.8-35.4); Mean Corpuscular Hemoglobin 31.3 pg (27.0-31.2); Mean Corpuscular Volume 93.5 fl (81-99); Mean Platelet Volume 8.9 fl (7.4-10.4); Monocytes # 0.6 K/mm3 (0.1-1.0); Monocytes % 6.2 % (1.7-9.3); Neutrophils # 5.1 K/mm3 (1.8-7.8); Neutrophils % 52.2 % (37.0-80.0); Platelet Count 216 K/mm3 (142-424); Red Blood Count 3.33 M/mm3 (4.20-5.40); Red Cell Distribution Width 13.8 % (11.5-17.5); White Blood Count 9.7 K/mm3 (4.8-10.8)
--- NOTE | 2023-03-13 07:51 | EXP.ACUTE.PN ---
Subjective *Date: 03/13/23 *Time: 07:51 Interval history: POD # 1 s/p RLTCS Resting comfortably in bed. Pain controlled. Breast feeding. Appropriate lochia. Voiding without difficulty and passing flatus. Tolerating regular diet. Denies fever/chills, chest pain and shortness of breath. No headaches, vision changes, lightheadedness or dizziness. Ambulating well ad maría. Medical Exam Vital signs and Labs for Last 24 Hours: Vital Signs Temp Pulse Pulse Resp BP BP Pulse Ox 03/13/23 04:28 97.7 F 89 14 102/86 L 98 03/12/23 20:07 97.8 F 89 17 118/77 98 03/12/23 16:15 97.5 F L 90 18 121/76 98 03/12/23 15:15 95 H 18 118/72 98 03/12/23 14:15 98 H 18 115/71 97 03/12/23 13:15 95 H 18 117/75 97 03/12/23 12:15 109 H 18 133/80 97 03/12/23 11:45 93 H 18 117/83 100 03/12/23 11:15 97.6 F 90 18 133/80 100 03/12/23 10:45 82 15 118/73 100 03/12/23 10:45 82 15 118/73 100 03/12/23 10:15 80 15 129/67 100 03/12/23 10:00 97.5 F L 99 H 16 119/82 100 03/12/23 09:45 81 17 121/73 03/12/23 09:30 70 20 123/87 03/12/23 09:15 98.2 F 75 18 132/82 99 03/12/23 09:10 98.2 F 89 16 144/74 H 100 03/12/23 09:00 88 16 130/65 100 03/12/23 08:50 89 16 130/82 100 03/12/23 08:40 98.1 F 90 16 119/45 L 100 03/12/23 08:52 97.4 F L 82 12 119/45 L O2 Del Method 03/13/23 04:28 Room Air 03/12/23 20:07 Room Air 03/12/23 16:15 Room Air 03/12/23 15:15 Room Air 03/12/23 14:15 Room Air 03/12/23 13:15 Room Air 03/12/23 12:15 Room Air 03/12/23 11:45 Room Air 03/12/23 11:15 Room Air 03/12/23 10:45 Room Air 03/12/23 10:45 Room Air 03/12/23 10:15 Room Air 03/12/23 10:00 Room Air 03/12/23 09:45 03/12/23 09:30 03/12/23 09:15 Room Air 03/12/23 09:10 Room Air 03/12/23 09:00 Room Air 03/12/23 08:50 Room Air 03/12/23 08:40 Room Air 03/12/23 08:52 Intake and Output 03/12/23 03/12/23 03/13/23 15:59 23:59 07:59 Intake Total 1000 / 1000 Output Total 1000 / 1000 Balance 1000 / 0 -1000 / 0 Intake: Intake, Total IV Amount 1000 / 1000 Output: Output, Urine Amount 1000 / 1000 Laboratory Results - last 24 hr 03/12/23 06:00: Blood Type A Positive, Antibody Screen Negative 03/12/23 08:05: Cord ABG pH 7.42 03/12/23 : Urine Opiates Screen Negative, Urine Methadone Screen Negative, Ur Barbituates Screen Negative, Ur Phencyclidine Scrn Negative, Ur Amphetamines Screen Negative, U Benzodiazepines Scrn Negative, Urine Cocaine Screen Negative, U Marijuana (THC) Screen Negative 03/13/23 06:40: WBC 9.7, RBC 3.33 L, Hgb 10.4 L, Hct 31.2 L, MCV 93.5, MCH 31.3 H, MCHC 33.4, RDW 13.8, Plt Count 216, MPV 8.9, Neut % (Auto) 52.2, Lymph % (Auto) 38.2, [place] % (Auto) 6.2, Eos % (Auto) 3.0, Baso % (Auto) 0.4, Neut # (Auto) 5.1, Lymph # (Auto) 3.7, [place] # (Auto) 0.6, Eos # (Auto) 0.3, Baso # (Auto) 0.0 I & O for Labs for Last 24 Hours: Intake & Output 03/10/23 03/11/23 03/12/23 03/13/23 23:59 23:59 23:59 23:59 Intake Total 1000 / 1000 Output Total 1000 / 1000 Balance 0 / 0 Weight 172 lb Head: Present atraumatic and normocephalic ENT: Present mucous membranes moist Neck: Present normal inspection and full ROM Respiratory: Present CTA bilaterally and normal respiratory effort Cardiac: Present Reg Rate and Rhythm GI: Present soft and normal bowel sounds; Absent distention or tenderness Comments:: Uterine fundus firm and below umbilicus, Pfannenstiel incision clean/dry/intact with steri strips in place Rectal (female): Present deferred (female): Present deferred Extremities: Present normal inspection and full ROM; Absent edema or calf tenderness Neuro: Present alert, awake, oriented x 3 and moves all extremities Assessment and Plan *Assessment and plan (1) with 39 completed weeks gestation: Status: Acute Category: Medical Code(s): Z3A.39 - 39
--- NOTE | 2023-03-13 08:46 | EXP.ANES.II ---
[facility] Anesthesia Record Part II Anesthesia Record Part II Discharge Time: 09:10 Destination: [facility] Day Care (OP Surgery) PACU nurse assessment reviewed?: Yes Patient Condition:: Good Anesthesia Complications:: None Swallowing reflex intact?: Yes Airway Patency: Patent Cyanosis?: No Blood Pressure: 144/74 SaO2: 100 Respiratory Rate: 16 Pulse Rate: 89 Temperature: 98.2 F Mental Status: Alert & Oriented Pain level:: 0 Nausea and/or vomitting:: None Intake, IV Amount: 0 Hydration: Adequate
[2023-03-13 08:47] VITALS: BP 144/74; PULSE 89; RESP 16; TEMP 36.8; O2SAT 100
--- NOTE | 2023-03-13 08:54 | SW/DCPLANNER ---
Addendum entered by Leanna Souza 03/16/23 13:08: Infant cord screen is NEGATIVE. Original Note: I received a consult on this patient regarding THC use during . Patient tested positive for THC on 09/25/2022. Patient was negative on the following dates: 01/11/2023, 02/28/2023, 03/12/2023. urine was also negative at delivery. Patient admits to THC use but stopped once she found out she was . Patient delivered female: [place]-Rosemary Saunders on 03/12/2023. Infant's father (Rodríguez Saunders 05/06/1988) was present during the time of my visit. Patient, , Rodríguez and other child will reside at [address] [place] [address] in [place]. Patient's contact number is [phone]. Patient stated that she has the following items at home: crib, carseat, clothing, diapers and will be breast feeding. PED MD will be Dr Mccormack. Patient stated that she will have transportation to all follow up appointments. Patient is expected to discharge home tomorrow pending no setbacks.
[2023-03-13 20:00] VITALS: BP 122/70; PULSE 80; RESP 14; TEMP 36.7; O2SAT 100
--- NOTE | 2023-03-14 10:34 | EXP.DC.SUM ---
General Admission date:: 03/12/23 Discharge date: 03/14/23 HPI HPI HPI: POD # 2 s/p RLTCS Resting comfortably in bed. Pain controlled. Breast feeding. Light lochia. Voiding without difficulty and passing flatus. Tolerating regular diet. Denies fever/chills, chest pain and shortness of breath. No headaches, vison changes, lightheadedness/dizziness. Admits to mild bilateral lower extremity swelling. Ambulating well ad maría. Hospital Course Hospital Course Hospital Course: Mrs Radha Saunders is a very pleasant 32 yo at 39w4d who presents to [facility] for scheduled repeat . History of x 1. She has had good care. She underwent repeat on 03/12/23. She delivered a live female baby, [place], weighing 7 lb 10 oz, AGPARs 8 (1 min), 9 (5 min). EBL 400 mL. She did well postoperatively. Pain controlled. Breast feeding. Light lochia. Voiding without difficulty and passing flatus. Tolerating regular diet. Denies fever/chills, chest pain and shortness of breath. No headaches, vison changes, lightheadedness/dizziness. Admits to mild bilateral lower extremity swelling. Vital signs stable, afebrile. Heart regular rate and rhythm. Lungs clear to auscultation. Abdomen soft, nontender. Trace bilateral lower extremity swelling. No calf tenderness to palpation. Ambulating well ad maría. Normal hospital course. Discharged home on POD # 2 with instructions to follow-up in the office in 2 weeks. Exam Data for Last 24 hours Vital signs and Labs for Last 24 Hours: Temp Pulse Resp BP Pulse Ox O2 Del Method 98.0 F 80 14 122/70 100 Room Air 03/13/23 20:00 03/13/23 20:00 03/13/23 20:00 03/13/23 20:00 03/13/23 20:00 03/13/23 20:00 I & O for Last 24 hours: Intake & Output 03/11/23 03/12/23 03/13/23 03/14/23 23:59 23:59 23:59 23:59 Intake Total 1000 / 1000 0 / 0 Output Total 1000 / 1000 Balance 0 / 0 0 / 0 Weight 172 lb Constitutional Constitutional: no acute distress and cooperative *Routine HEENT Exam Head: Present normocephalic and atraumatic Eye: Absent conjunctivae pink ENT: Present mucous membranes moist *Routine Neck Exam Neck: Present full ROM *Routine Respiratory Exam Respiratory: Present CTA bilaterally and normal respiratory effort *Routine Cardiovascular Exam Cardiovascular: Present RRR *Routine Abdominal Exam Abdominal: Present soft and normoactive bowel sounds; Absent tenderness or distended Comments: Uterine fundus firm and below umbilicus, pfannestiel incision clean/dry/intact with steri strips in place *Routine Rectal Exam Patient deferred: visual exam *Routine Exam Patient deferred: external exam *Routine Extremities Exam Extremities: Present edema (trace bilateral lower extremity edema) and full ROM; Absent calf tenderness *Routine Neurological Exam Neurological: Present alert, oriented X3 and moving all extremities Routine Psychiatric Exam Psychiatric: Present normal affect DS: Diagnosis Discharge Diagnosis (1) with 39 completed weeks gestation: Status: Acute Code(s): Z3A.39 - 39 weeks gestation of (2) History of : Status: Acute Code(s): Z98.891 - History of uterine scar from previous surgery (3) Depression affecting , antepartum: Status: Acute Code(s): O99.340 - Other mental disorders complicating , unspecified trimester; F32.A - Depression, unspecified (4) Acute blood loss anemia: Status: Acute Code(s): D62 - Acute posthemorrhagic anemia Meds Home Medications and Allergies Home Medications Medication Instructions Recorded Confirmed Type sertraline 50 mg tablet 50 mg PO DAILY Mood 06/06/22 03/12/23 History vit no.95-ferrous 1 tab PO DAILY Supplement 03/12/23 03/12/23 History fumarate 28 mg-folic acid 800 mcg tablet () ibuprofen 800 mg tablet 800 mg PO Q8H PRN pain #20 tabs 03/14/23 Rx oxycodone 5 mg tablet 5 mg PO
== END 2023-03-14 12:00 | disposition home or self-care (01) | DRG 807 ==
PROVIDERS: Admitting Provider Obstetrics & Gynecology; PCP Obstetrics & Gynecology; Visit Provider Obstetrics & Gynecology
PROC: 10E0XZZ Delivery of Products of Conception, External Approach (ICD-10-PCS; principal; 2023-03-12 07:30)
DX: O34.211 Maternal care for low transverse scar from previous cesarean delivery (principal); Z37.0 Single live birth; Z3A.39 39 weeks gestation of pregnancy; O99.344 Other mental disorders complicating childbirth; F32.A Depression, unspecified; Z23 Encounter for immunization
CPT/HCPCS: 59515; 36415; 59025; 80053; 80305; 81001; 82800; 85025; 86850; 87086; 94761; 96374; C9290; G0283; J2405

== ENCOUNTER 2023-12-18 15:25 | Outpatient (CLI) | payer BC, SELFPAY ==
[2023-12-18 18:40] LABS: Coronavirus 19, PCR Not Detected (NotDetected); Influenza A, PCR Not Detected (NotDetected); Influenza B, PCR Not Detected (NotDetected)
== END 2023-12-18 23:59 | disposition home or self-care (01) ==
LOC: LAB.DROPOF 12-19 15:25
PROVIDERS: PCP Student in an Organized Health Care Education/Training Program; Visit Provider Student in an Organized Health Care Education/Training Program
DX: R51.9 Headache, unspecified (principal)
CPT/HCPCS: 87636